=== PATIENT | male | born 1970 | race Caucasian/White ===

== ENCOUNTER → 2019-12-06 11:23 | Outpatient (CLI) | payer OTHER, SELFPAY ==
--- NOTE | 2019-12-06 11:30 | DI.RAD.S_ITS ---
PROCEDURE: XR LUMBAR SPINE 2-3V INDICATIONS: Sacroiliitis, radiculopathy TECHNIQUE: 3 views of the lumbar spine were acquired. COMPARISON: None. FINDINGS: Bones: 5 [id number] vertebrae are present. There is trace L1-L2, L2-L3 and L3-L4 retrolisthesis. Moderate L5-S1 degenerative disc disease. Mild L1-L2, L3-L4 and L4-L5 degenerative disc disease. No vertebral body compression fractures. Small erosive change versus Schmorl's node noted in the anterior superior corner of the L4 vertebral body. Soft tissues: Overlying bowel gas pattern is normal. No suspicious soft tissue calcifications. IMPRESSION: 1. Multilevel degenerate disc disease. 2. No fracture. No acute osseous lesion. If symptoms and/or clinical suspicion for pathology persists, evaluation with MRI may be helpful for further assessment. 3. Erosive change versus small Schmorl's node noted in the anterior-superior corner of the L4 vertebral body. Dictated by: Isabela Thompson MD, PhD on 12/06/2019 at 16:35 Approved by: Isabela Thompson MD, PhD on 12/06/2019 at 16:37
--- NOTE | 2019-12-06 11:30 | DI.RAD.S_ITS ---
PROCEDURE: XR CERVICAL SPINE 2V OR 3V INDICATIONS: Sacroiliitis, radiculopathy TECHNIQUE: 3 view(s) of the cervical spine were acquired. COMPARISON: None. FINDINGS: Bones: No fractures or dislocations to the T1 level. The lateral masses of C1 appear intact on the odontoid view. No suspicious bony lesions. Intervertebral disc height is normally preserved at all levels. No osseous erosive changes. Soft tissues: No prevertebral soft tissue swelling. IMPRESSION: 1. No suspicious osseous lesions with no lytic or sclerotic abnormalities. 2. No fracture. No osseous lesion. If symptoms and/or clinical suspicion for pathology persists, evaluation with MRI may be helpful for further assessment. Dictated by: Isabela Thompson MD, PhD on 12/06/2019 at 16:38 Approved by: Isabela Thompson MD, PhD on 12/06/2019 at 16:40
== END ==
PROVIDERS: PCP Family Medicine; Referring Provider Family Medicine; Visit Provider Family Medicine
DX: M46.1 Sacroiliitis, not elsewhere classified (principal); M51.36 Other intervertebral disc degeneration, lumbar region; M51.37 Other intervertebral disc degeneration, lumbosacral region; M48.02 Spinal stenosis, cervical region; M54.12 Radiculopathy, cervical region; Z15.89 Genetic susceptibility to other disease
CPT/HCPCS: 72040; 72100

== ENCOUNTER → 2020-05-15 10:46 | Outpatient (CLI) | payer OTHER, SELFPAY ==
--- NOTE | 2020-05-15 11:31 | DI.CT.S_ITS ---
PROCEDURE: CT ABDOMEN PELVIS WO/W CON INDICATIONS: Gross hematuria TECHNIQUE: Optional 5 mm thick noncontrast images acquired from the diaphragm to the symphysis pubis. After the administration of intravenous contrast, 5 mm thick images acquired from the diaphragm to the symphysis pubis after a 10-minute delay. 2 mm thick coronal and sagittal reformats were then performed of the kidneys and ureters. For radiation dose reduction, the following was used: automated exposure control, adjustment of mA and/or kV according to patient size. COMPARISON: None. FINDINGS: Image quality: Excellent. Lung bases: Lung bases are clear. Heart size is normal. Urinary system: 5 mm calculus seen in the right renal pelvis although no hydronephrosis or hydroureter identified. No other urolithiasis identified. No evidence of left-sided urinary obstruction. Bladder unremarkable. No bladder calculi. Subcentimeter hepatic foci are statistically cysts or hemangiomas, although technically too small to characterize accurately and therefore nonspecific. Gallbladder unremarkable. Biliary system is non dilated. Pancreas enhances normally. Spleen is normal in size and enhancement. No adrenal nodules. Peritoneum and bowel: Bowel loops demonstrate normal wall thickness and caliber. No free fluid or air. Colonic diverticulosis is seen without evidence of acute complication. Hyperdense appearance of the appendix suggestive of appendicoliths or debris however no inflammatory changes or appendiceal dilatation. Nodes and vessels: No retroperitoneal or mesenteric adenopathy by size criteria. Aorta and inferior vena cava are normal in size. Abdominal wall: No ventral hernias. Pelvis: No pathologic free pelvic fluid. No inguinal hernias or adenopathy. Bones: No suspicious bony lesions. There is bilateral sacroiliac sclerosis, without ankylosis. No vertebral body compression fractures. IMPRESSION: Nonobstructive 5 mm calculus in the right renal pelvis. Incidentally noted hyperdense appearance of the appendix suggestive of intraluminal debris/appendicoliths however no definite inflammatory appearance seen at this time. Additional chronic and incidental findings as above. Dictated by: Jason Farley M.D. on 05/15/2020 at 12:24 Approved by: Jason Farley M.D. on 05/15/2020 at 12:31
== END ==
PROVIDERS: PCP Family Medicine; Referring Provider Family Medicine; Visit Provider Family Medicine
DX: R31.0 Gross hematuria (principal); N20.0 Calculus of kidney; K57.90 Diverticulosis of intestine, part unspecified, without perforation or abscess without bleeding
CPT/HCPCS: 74178; Q9967

== ENCOUNTER → 2020-07-02 11:35 | Outpatient (CLI) | payer OTHER, SELFPAY ==
--- NOTE | 2020-07-02 11:38 | DI.RAD.S_ITS ---
PROCEDURE: XR KUB INDICATIONS: Kidney stones TECHNIQUE: One view of the abdomen acquired. COMPARISON: [facility], CT, CT ABDOMEN PELVIS WO/W CON, 05/15/2020, 11:36. FINDINGS: Surgical changes and devices: None. Bowel: Bowel gas pattern is normal. Soft tissues: A 5 mm calcification is seen projecting over the inferior pole of the right kidney. No definite calcification is seen along the course of the ureters. Visualized solid organ contours appear normal in size. Bones: No suspicious bony lesions. There is joint space narrowing and surrounding sclerosis at the sacroiliac joints bilaterally without ankylosis. IMPRESSION: 5 mm calcification is seen projecting over the right kidney. Dictated by: Bradford Riley M.D. on 07/02/2020 at 12:49 Approved by: Bradford Riley M.D. on 07/02/2020 at 12:52
== END ==
PROVIDERS: PCP Family Medicine; Referring Provider Specialist; Visit Provider Specialist
DX: N20.0 Calculus of kidney (principal); R31.0 Gross hematuria
CPT/HCPCS: 74018; 81002

== ENCOUNTER 2020-08-30 07:49 | Day surgery (SDC) | payer OTHER, SELFPAY ==
[2020-08-30] VITALS (12 sets, daily range): BP systolic 95–125; BP diastolic 57–79; PULSE 57–80; RESP 10–16; TEMP 36.4–37; O2SAT 95–98; BMI 27.5
--- NOTE | 2020-08-30 | DI.RAD.S_ITS ---
PROCEDURE: XR KUB INDICATIONS: Right renal calculus TECHNIQUE: One view of the abdomen acquired. COMPARISON: [facility], CR, XR KUB, 07/02/2020, 11:39. FINDINGS: Surgical changes and devices: None. Bowel: Bowel gas pattern is normal. Soft tissues: No new suspicious abdominal calcifications. One or overlapping 2 calcifications are again seen at the lower 3rd collecting system area of the right kidney, unchanged in morphology size and position. Visualized solid organ contours appear normal in size. A small phlebolith is seen inferiorly on the right near the lateral pelvic sidewall. Bones: No suspicious bony lesions. IMPRESSION: Urinary tract calcification(s) again noted lower 3rd collecting system area of the right kidney. No change. Dictated by: Herbie Vasquez M.D. on 08/30/2020 at 9:13 Approved by: Herbie Vasquez M.D. on 08/30/2020 at 9:16
[2020-08-30 08:24] LABS: COVID19 -Nasal RAPID Negative (Negative)
[2020-08-30] MEDS: LACTATED RINGERS 1,000 ML 42 ML IV (08:29)
[2020-08-30] MEDS: SCOPOLAMINE 1 PATCH TOP (08:29)
[2020-08-30] MEDS: ACETAMINOPHEN 325 MG TABLET 975 MG PO (08:29)
--- NOTE | 2020-08-30 08:40 | PM.PREOP ---
Pre-operative Note Interval Note History & Physical reviewed/Exam performed by Physician: Yes Changes to H&P: No
--- NOTE | 2020-08-30 09:10 | SUR.OPER ---
Supine on padded OR bed, head on pillow per anes, arms padded with gel and tucked at side, legs uncrossed, on lithotripsy bed, legs positioned on triangle, gel pad under bilateral legs and heels
--- NOTE | 2020-08-30 09:33 | P.OP_ITS ---
Operative Date/Time/Diagnoses Date of procedure: 08/30/20 Time of procedure: 09:33 Pre-op diagnosis: 6 x 8 mm right renal calculi History of nephrolithiasis Post-op diagnosis: same Procedure & Clinicians Procedure: Right extra corporal shockwave lithotripsy (maximal power level 6.0 time 750 shocks). Same procedure as scheduled: Yes Indications: 6 x 8 mm right renal calculus History of nephrolithiasis Surgeon: Andi Jimenes Click Yes if Unassisted: Yes Anesthesia Type: General Operative Notes Findings: The index calculus was identified in the same position as on preoperative imaging. Closure Type: not applicable Specimen(s): none sent Estimated Blood Loss (mL): 0 Blood products transfused: none Procedure in detail: Patient was positioned supine in the index calculus was localized in the X, Y, and Z planes. Lithotripsy was then commenced at minimal power level for 200 shocks. A 2 minutes pause was then conducted. Lithotripsy was then resumed and power level was gradually increased to a maximal power level of 6.0. The stone and its fragments were really localize during treatment and adjustments were made in the position of the focal point is indicated. A total of 750 shocks were delivered. There was excellent evidence of stone c omminution at that point and treatment was halted. Patient was then awakened, transferred to [facility], and transferred to recovery in stable condition. Complications: none Post-operative Condition: stable Disposition: PACU Plan for aftercare: Discharge home
--- NOTE | 2020-08-30 10:05 | SUR.PHASEI ---
0950 pt. turned to his left side per dr. le, ongoing monitoring.
== END 2020-08-30 10:42 | disposition home or self-care (01) ==
PROVIDERS: PCP Family Medicine; Referring Provider Specialist; Visit Provider Specialist
PROC: (CPT 50590; principal; 2020-08-30 09:15)
DX: N20.0 Calculus of kidney (principal); F41.9 Anxiety disorder, unspecified; Z20.822 Contact with and (suspected) exposure to COVID-19
CPT/HCPCS: 50590; 74018; 87635; J1100; J2250; J2405; J2704

== ENCOUNTER → 2022-05-26 08:01 | Outpatient (CLI) | payer OTHER, SELFPAY ==
[2022-05-26 20:58] LABS: COVID19 - ORCAS (NP or Nasal) Negative (Negative)
== END ==
PROVIDERS: PCP Physician Assistant; Visit Provider Physician Assistant
DX: Z01.812 Encounter for preprocedural laboratory examination (principal); Z20.822 Contact with and (suspected) exposure to COVID-19
CPT/HCPCS: U0003

== ENCOUNTER 2022-05-28 08:54 | Day surgery (SDC) | payer OTHER, SELFPAY ==
[2022-05-28] MEDS: LACTATED RINGERS 1,000 ML 84 ML IV (09:12)
[2022-05-28 09:14] VITALS: BP 157/92; PULSE 74; RESP 18; TEMP 36.8; O2SAT 99; BMI 27.5
--- NOTE | 2022-05-28 11:01 | PM.PREOP ---
Pre-operative Note COVID-19 COVID-19 status: Negative Result date/Date tested (Pos, Neg/Pending): 05/27/22 Interval Note History & Physical reviewed/Exam performed by Physician: Yes Changes to H&P: No ASA Class (for procedural sedation): I
[2022-05-28 12:13] VITALS: BP 95/59; PULSE 88; RESP 16; TEMP 36.1; O2SAT 97
--- NOTE | 2022-05-28 12:13 | PM.OP.COLON ---
Operative Date/Time/Diagnoses Date of procedure: 05/28/22 Time of procedure: 12:13 Pre-op diagnosis: Colon cancer screening Post-op diagnosis: same Procedure & Clinicians Study performed: Colonoscopy Same procedure as scheduled: Yes Surgeon: Aaron Madrigal Procedure Notes Procedure in detail: Surgeon: Aaron Madrigal MD Anesthesia: Melo Magaña MD Procedure: The patient was brought to the endoscopy suite, placed in left lateral decubitus position. The patient was connected to monitoring devices. A time-out was performed. Sedation was administered. Once the patient was adequately sedated, a digital rectal exam was performed and was normal. The scope was then inserted and advanced to the cecum where the appendiceal orifice was identified and photographed. The scope was then slowly withdrawn over greater than 6 minutes. The mucosa was thoroughly inspected. No polyps or other lesions were noted. The scope was retroflexed in the rectum. No other abnormalities were noted. The scope was straightened and removed. The patient was awakened and brought to recovery. Scope withdrawal time: 11 minutes Sedation time: 13 minutes EBL: 5 mL Findings: Normal colon Post-procedure Recommendations: Colonoscopy in 10 years Disposition: PACU
[2022-05-28 12:18] VITALS: BP 94/54; PULSE 77; RESP 12; O2SAT 94
[2022-05-28 12:23] VITALS: BP 98/63; PULSE 79; RESP 18; O2SAT 94
[2022-05-28 12:28] VITALS: BP 96/57; PULSE 77; RESP 16; TEMP 36.6; O2SAT 94
[2022-05-28 12:38] VITALS: BP 108/74; PULSE 65; RESP 16; TEMP 36.2; O2SAT 96
== END 2022-05-28 12:59 | disposition home or self-care (01) ==
PROVIDERS: PCP Physician Assistant; Referring Provider Surgery; Visit Provider Surgery
PROC: 0DJD8ZZ Inspection of Lower Intestinal Tract, Via Natural or Artificial Opening Endoscopic (ICD-10-PCS; CPT 45378; principal; 2022-05-28 10:00)
DX: Z12.11 Encounter for screening for malignant neoplasm of colon (principal)
CPT/HCPCS: 45378

== ENCOUNTER → 2022-06-01 06:58 | Outpatient (CLI) | payer OTHER, SELFPAY ==
[2022-06-01 21:28] LABS: COVID19 - ORCAS (NP or Nasal) Negative (Negative)
== END ==
PROVIDERS: PCP Physician Assistant; Visit Provider Family Medicine
DX: Z01.812 Encounter for preprocedural laboratory examination (principal); Z20.822 Contact with and (suspected) exposure to COVID-19
CPT/HCPCS: U0003

== ENCOUNTER 2022-06-02 11:15 | Day surgery (SDC) | payer OTHER, SELFPAY ==
[2022-05-28 07:51] VITALS: BMI 28.8
[2022-06-02 12:10] VITALS: BP 135/90; PULSE 59; RESP 16; TEMP 36.3; O2SAT 98; BMI 28.8
[2022-06-02] MEDS: LACTATED RINGERS 1,000 ML 42 ML IV (12:13)
--- NOTE | 2022-06-02 14:00 | PM.PREOP ---
Pre-operative Note COVID-19 COVID-19 status: Negative Result date/Date tested (Pos, Neg/Pending): 06/01/22 Interval Note History & Physical reviewed/Exam performed by Physician: Yes Changes to H&P: No ASA Class (for procedural sedation): II
--- NOTE | 2022-06-02 14:41 | SUR.OPER ---
Lithotomy on padded OR bed, head on pillow, right arm secured on padded arm boards at <90 degrees abduction, left arm positioned so hand is holding scrotum out of surgical field with blanket under forearm Legs secured in padded yellow fins stirrups.
[2022-06-02] MEDS: BUPIVACAINE LIPOSOME 266 MG/20 ML VIAL INJ (14:49)
[2022-06-02 15:34] VITALS: BP 116/74; PULSE 84; RESP 16; TEMP 36.6; O2SAT 92
[2022-06-02 15:39] VITALS: BP 118/72; PULSE 87; RESP 13; O2SAT 93
--- NOTE | 2022-06-02 15:39 | PM.OP.1 ---
Operative Date/Time/Diagnoses Date of procedure: 06/02/22 Time of procedure: 15:41 Pre-op diagnosis: Fistula Post-op diagnosis: same Procedure & Clinicians Procedure: Examination under anesthesia and seton placement Same procedure as scheduled: Yes Surgeon: Aaron Madrigal Operative Notes Procedure in detail: The patient was brought to the operating room and general anesthesia was induced. No antibiotics were indicated. The patient was positioned in lithotomy with stirrups. Perineum was prepped and draped in the usual fashion and a time-out was performed. The anal sphincter was dilated using 2 fingers with plenty of lubricant. Inspection demonstrated the external opening in the posterior midline 2 cm from the anal verge. Next a Hill-Roman retractor was inserted and the distal rectum was examined. Initially, no obvious internal opening was seen. We injected hydrogen peroxide which demonstrated the internal opening in the midline. Probe was passed through the tract to the internal opening. It appeared that all of the internal sphincter and possibly some of the external sphincter was involved and so a decision was made to place a seton. A silk suture was tied to the probe and pulled through the tract. Then a vessel loop was tied to the silk and pulled through the tract. The vessel loop was tied to itself using 2 0 silk ties. Finally we injected Exparel around the wound and placed a Gelfoam against the wound bed. Gauze and mesh panties were applied. The patient was awakened and brought to recovery room. EBL: 10 mL Specimen: None Post-operative Condition: stable Disposition: PACU
[2022-06-02 15:44] VITALS: BP 116/81; PULSE 90; RESP 15; O2SAT 97
[2022-06-02 15:49] VITALS: BP 124/83; PULSE 85; RESP 14; O2SAT 95
[2022-06-02 15:58] VITALS: BP 127/84; PULSE 84; RESP 15; TEMP 36.6; O2SAT 99
== END 2022-06-02 16:23 | disposition home or self-care (01) ==
PROVIDERS: PCP Physician Assistant; Referring Provider Surgery; Visit Provider Surgery
PROC: (CPT 46020; principal; 2022-06-02 13:15)
DX: K60.3 Anal fistula (principal)
CPT/HCPCS: 46020; C9290; J1100; J2250; J2405; J2704; J3010

== ENCOUNTER → 2022-08-31 08:51 | Outpatient (CLI) | payer OTHER, SELFPAY ==
[2022-08-31 19:48] LABS: Add Manual Diff / Slide Review NO; Basophils Absolute Auto 0 /uL (0-100); Basophils Percent Auto 0.7 % (0-2); Eosinophils Absolute Auto 500 /uL (0-450); Eosinophils Percent Auto 11.3 % (2-4); Hematocrit 43.9 % (41-53); Hemoglobin 14.7 g/dL (13.5-17.5); Lymphocytes Absolute Auto 1500 /uL (1100-4500); Lymphocytes Percent Auto 35.5 % (25-40); Mean Corpuscular HGB Conc 33.5 % (30-36); Mean Corpuscular Volume 92.4 fL (80-100); Monocytes Absolute Auto 300 /uL (0-900); Monocytes Percent Auto 6.7 % (3-14); Neutrophils Absolute Auto 2000 /uL (1500-7000); Neutrophils Percent Auto 45.8 % (50-75); Platelet Count 303 X10^3/uL (150-400); Red Blood Cell Count 4.75 X10^6/uL (4.5-5.9); Red Cell Distribution Width 13.1 % (11.6-14.8); White Blood Cell Count 4.3 X10^3/uL (4.5-11.0)
[2022-08-31 20:03] LABS: Alanine Aminotransferase 26 IU/L (<50); Albumin 4.4 g/dL (3.5-5.0); Albumin Globulin Ratio 1.5 (1.0-2.8); Alkaline Phosphatase 66 U/L (38-126); Aspartate Aminotransferase 26 IU/L (17-59); BUN Creatinine Ratio 21.1 (6-22); Blood Urea Nitrogen 16 mg/dL (9-20); Calcium 9.5 mg/dL (8.4-10.2); Carbon Dioxide 26 mmol/L (22-32); Chloride 105 mmol/L (98-107); Cholesterol 230 mg/dL (140-199); Estimated Glomerular Filt Rate > 60 mL/min (>60); Globulin 2.9 g/dL (1.7-4.1); Glucose 105 mg/dL (70-100); HDL Cholesterol 54 mg/dL (40-60); HEMOLYSIS < 15 (0-50); LDL Cholesterol Calculated 143 mg/dL (<100); Potassium 4.7 mmol/L (3.4-5.1); Sodium 139 mmol/L (137-145); Total Protein 7.3 g/dL (6.3-8.2); Triglycerides 166 mg/dL (35-150)
== END ==
PROVIDERS: PCP Family Medicine; Visit Provider Family Medicine
DX: E78.5 Hyperlipidemia, unspecified (principal); Z79.1 Long term (current) use of non-steroidal anti-inflammatories (NSAID); R19.5 Other fecal abnormalities; R10.13 Epigastric pain
CPT/HCPCS: 80053; 80061; 84443; 85025

== ENCOUNTER → 2022-09-28 14:03 | Outpatient (CLI) | payer OTHER, SELFPAY ==
[2022-09-28 20:17] LABS: Add Manual Diff / Slide Review NO; Basophils Absolute Auto 0 /uL (0-100); Basophils Percent Auto 0.6 % (0-2); Eosinophils Absolute Auto 200 /uL (0-450); Eosinophils Percent Auto 3.1 % (2-4); Hematocrit 41.3 % (41-53); Hemoglobin 14.1 g/dL (13.5-17.5); Lymphocytes Absolute Auto 1800 /uL (1100-4500); Lymphocytes Percent Auto 33.5 % (25-40); Mean Corpuscular HGB Conc 34.2 % (30-36); Mean Corpuscular Hemoglobin 31.4 PG (26-34); Mean Corpuscular Volume 91.9 fL (80-100); Monocytes Absolute Auto 400 /uL (0-900); Monocytes Percent Auto 7.6 % (3-14); Neutrophils Absolute Auto 2900 /uL (1500-7000); Neutrophils Percent Auto 55.2 % (50-75); Platelet Count 294 X10^3/uL (150-400); Red Blood Cell Count 4.49 X10^6/uL (4.5-5.9); White Blood Cell Count 5.3 X10^3/uL (4.5-11.0)
[2022-09-29 21:07] LABS: x Labcorp Estim. Avg Glu (eAG) 111 mg/dL (.); x Labcorp Hemoglobin A1c 5.5 % (4.8-5.6)
== END ==
PROVIDERS: PCP Family Medicine; Visit Provider Family Medicine
DX: D72.10 Eosinophilia, unspecified (principal)
CPT/HCPCS: 83036; 85025

== ENCOUNTER 2022-11-30 22:18 | Emergency (ER) | payer OTHER, SELFPAY ==
[2022-11-30 22:25] VITALS: BP 130/85; PULSE 130; RESP 18; TEMP 36.6; O2SAT 97
--- NOTE | 2022-11-30 22:30 | DI.RAD.S_ITS ---
PROCEDURE: XR FINGER RT MIN 2V INDICATIONS: smashed middle finger between 2 rocks,has lac TECHNIQUE: AP hand, 2 views of the 3rd digit acquired. COMPARISON: None. FINDINGS: Bones: No fractures or dislocations. No suspicious bony lesions. Soft tissues: There is a soft tissue laceration of the 3rd digit distally. No radiopaque foreign bodies. No suspicious soft tissue calcifications. IMPRESSION: 1. No fracture or dislocation. Dictated by: Candido Quach M.D. on 12/01/2022 at 1:23 Approved by: Candido Quach M.D. on 12/01/2022 at 1:25
[2022-11-30] MEDS: LIDOCAINE 1% 20 ML INJ (23:00)
--- NOTE | 2022-11-30 23:15 | ED_ITS ---
HPI - General Adult General Chief complaint: Extremity Injury, Upper Stated complaint: RT MIDDLE FINGER INJURY Time Seen by Provider: 11/30/22 22:38 Source: patient Mode of arrival: Ambulatory History of Present Illness HPI narrative: Patient is a 51-year-old male who is here for evaluation of a right middle finger injury. He states that he was working on a stone wall when he smashed his right middle finger in between 2 stones. There is an obvious laceration to the finger. He is pain in the middle finger. No other injuries from the event. He is up-to-date on his tetanus shot. Related Data Home Medications Medication Instructions Recorded Confirmed cholecalciferol (vitamin D3) 25 25 mcg PO DAILY 08/30/20 11/16/22 mcg (1,000 unit) capsule (Vitamin D3) naproxen 250 mg tablet 250 mg PO ONCE PRN Pain 10/28/20 11/16/22 Previous Rx's Medication Instructions Recorded sertraline 50 mg tablet See Rx Instructions .Route 12/30/21 .COMPLEX #180 tabs cephalexin 500 mg capsule 500 mg PO QID 5 days #20 caps 12/01/22 Allergies Allergy/AdvReac Type Severity Reaction Status Date / Time No Known Drug Allergies Allergy Verified 11/16/22 13:19 Review of Systems Musculoskeletal Musculoskeletal: Reports system reviewed and no additional complaints, except as documented Integumentary/Breasts Skin/Breast: Reports system reviewed and no additional complaints, except as documented Neurologic Neurologic: Reports system reviewed and no additional complaints, except as documented Patient History Medical History Arthritis Atrial flutter DDD (degenerative disc disease) Encounter for monitoring chronic NSAID therapy Gross hematuria H/O atrial flutter H/O rotator cuff tear Right nephrolithiasis Screening for cardiovascular condition Screening for diabetes mellitus Screening for thyroid disorder Surgical History History of cardiac radiofrequency ablation (2004) History of urologic surgery (08/30/20) Family History Mother Cancer UTI (urinary tract infection) Father Cancer IBD (inflammatory bowel disease) Migraine Social History marital status: household members: spouse Smoking Status: Never smoker alcohol intake: current caffeine: Yes Smoking Status: Never smoker alcohol intake frequency: 0-2 drinks per day Substance Use Type: marijuana Exam Initial Vital Signs Initial Vital Signs: Vital Signs Temperature 97.8 F 11/30/22 22:25 Pulse Rate 130 H 11/30/22 22:25 Respiratory Rate 18 11/30/22 22:25 Blood Pressure 130/85 11/30/22 22:25 Pulse Oximetry 97 11/30/22 22:25 Oxygen Delivery Method Room Air 11/30/22 22:25 Cardio Pulses: radial pulses present on the right Skin Other: Patient has a irregular laceration to the volar aspect of the distal right middle finger. It involves the pad of the finger. It does not extend proximal to the D IP joint. It extends to just the edge of the nail but does not involve the nail bed. Neuro Sensory Exam: no sensory deficits noted Extrem Other: Discomfort with palpation and movement of the distal right middle finger distal to the D IP joint. Procedures Laceration Repair Laceration 1: Site: other (Middle finger) Side (If applicable): right Size (cm): 3 Description: stellate, flap and irregular Depth: simple, single layer Local Anesthetic: lidocaine 1% Amount of anesthesia used (mL): 10 Pre-repair: wound explored and deep structures intact Skin layer closed with: nylon Skin layer suture size: 4-0 Number of sutures: 15 Technique: simple, interrupted Nerve Block Nerve Block 1: Local Anesthetic: lidocaine 1% Amount of anesthesia used (mL): 10 Side: right Nerve Blocks: digital Procedure Successful: Yes Patient Tolerated Procedure: Well Complications: none Course Orders Ordered: ED Orders 11/30/22 22:30 XR finger RT min 2V Stat Discontinued Medications Hydrocodone Bitart/Acetaminophen (Hydrocodone/Acet 5/325 Prepack) 1 bottle MISC SEEINSTR ONE Stop: 12/01/22 00:38 Last Admin: 12/01/22 00:40 Dose: 1 bottle Documented By: [email or web address] Bacitracin (Bacitracin Oint 0.9 Gm Pckt) 1 applic TOP NOW ONE Stop: 12/01/22 00:22 Last Admin: 12/01/22 00:25 Dose: 1 applic Documented By: [email or web address] Cephalexin HCl (Cephalexin 250 Mg Capsule) 500 mg PO NOW ONE Stop: 12/01/22 00:22 Last Admin: 12/01/22 00:25 Dose: 500 mg Documented By: [email or web address] Lidocaine HCl (Lidocaine 1% 20 Ml) 20 ml INJ INTRA-OP ONE Stop: 11/30/22 22:40 Last Admin: 11/30/22 23:00 Dose: 20 ml Documented By: CARMEN Vital Signs Vital signs: Vital Signs - 8 hr 11/30/22 22:25 12/01/22 00:48 Temperature 97.8 F Pulse Rate 130 H 84 Respiratory Rate 18 18 Blood Pressure 130/85 138/88 Pulse Oximetry 97 98 Oxygen Delivery Method Room Air Room Air Medical Decision Making Imaging Data Extremity x-ray #1: Radiologist's Impression: PROCEDURE:? XR FINGER RT MIN 2V ? INDICATIONS:? smashed middle finger between 2 rocks,has lac ? TECHNIQUE:? AP hand, 2 views of the 3rd digit acquired.? ? COMPARISON:? None. ? FINDINGS:? ? Bones:? No fractures or dislocations.? No suspicious bony lesions.? ? Soft tissues:? There is a soft tissue laceration of the 3rd digit distally.? No radiopaque foreign bodies.? No suspicious soft tissue calcifications.? ? IMPRESSION:? ? 1.? No fracture or dislocation. MDM Narrative Medical decision making narrative: Patient is up-to-date on his tetanus. No fractures or dislocations on the x- rays. Injury is isolated to the very distal aspect of the right middle finger. It was a very irregular laceration with couple different parts. Required 15 stitches total. There was a small flap of skin that potentially will not survive this injury. I did discuss this with him. Told him that even if the flap of skin does not survive stitching it back will provide a biologic bandage for the skin underneath. I did have to click back a small amount of the nail. There was no nail bed injury. Will start the patient on antibiotics. We will also send home with pain medication. He was given care instructions and return precautions. He expressed understanding and agreement. Discharge Plan Departure Patient Disposition: Home Clinical Impression: Crushing injury of finger, right Instructions: Skin Wound Activity Restrictions/Additional Instructions: Leave the bandage was placed today in place for the next 24 hours. After that you can remove it. You can wash your hands. You can shower. You can use soap and water. Do not soak your hand until the wound is healed. The stitches do need to be removed in 7-10 days. You can could your primary doctor for this. You can put topical antibiotic ointment over the area. Return to the emergency department for new or worsening symptoms. Prescriptions: New cephalexin 500 mg capsule 500 mg PO QID 5 Days Qty: 20 0RF No Action sertraline 50 mg tablet See Rx Instructions .ROUTE .COMPLEX Qty: 180 3RF Dose Instruction: TAKE 2 TABLETS DAILY Rx Instructions: TAKE 2 TABLETS DAILY cholecalciferol (vitamin D3) [Vitamin D3] 25 mcg (1,000 unit) Capsule 25 mcg PO DAILY naproxen 250 mg tablet 250 mg PO ONCE PRN (Reason: Pain) Referrals: Nichole Thomas MD [Primary Care Provider] - Stand Alone Forms: Patient Portal/API
[2022-12-01] MEDS: BACITRACIN OINT 0.9 GM PCKT 1 APPLIC TOP (00:25)
[2022-12-01] MEDS: cephALEXin 250 MG CAPSULE 500 MG PO (00:25)
[2022-12-01] MEDS: HYDROCODONE/ACET 5/325 PREPACK 1 BOTTLE MISC (00:40)
[2022-12-01 00:48] VITALS: BP 138/88; PULSE 84; RESP 18; O2SAT 98
== END 2022-12-01 00:49 | disposition home or self-care (01) ==
PROVIDERS: Emergency Provider Emergency Medicine; PCP Family Medicine
DX: S67.192A Crushing injury of right middle finger, initial encounter (principal); W23.0XXA Caught, crushed, jammed, or pinched between moving objects, initial encounter
CPT/HCPCS: 12002; 64450; 73140; 99283; 99284

== ENCOUNTER → 2022-12-17 16:02 | Outpatient (CLI) | payer OTHER, SELFPAY | PROVIDERS: PCP Family Medicine; Visit Provider Family Medicine | DX: L08.9 Local infection of the skin and subcutaneous tissue, unspecified (principal); T14.8XXA Other injury of unspecified body region, initial encounter | CPT/HCPCS: 87070; 87075; 87205 ==

== ENCOUNTER → 2024-04-05 10:53 | Outpatient (CLI) | payer OTHER, SELFPAY ==
[2024-04-05 19:07] LABS: Add Manual Diff / Slide Review NO; Basophils Absolute Auto 100 /uL (0-100); Basophils Percent Auto 1.2 % (0-2); Eosinophils Absolute Auto 200 /uL (0-450); Eosinophils Percent Auto 4.7 % (2-4); Hematocrit 44.4 % (41-53); Hemoglobin 14.9 g/dL (13.5-17.5); Lymphocytes Absolute Auto 2000 /uL (1100-4500); Lymphocytes Percent Auto 42.2 % (25-40); Mean Corpuscular HGB Conc 33.6 % (30-36); Mean Corpuscular Hemoglobin 31.2 PG (26-34); Mean Corpuscular Volume 92.8 fL (80-100); Monocytes Absolute Auto 300 /uL (0-900); Monocytes Percent Auto 7.2 % (3-14); Neutrophils Absolute Auto 2100 /uL (1500-7000); Neutrophils Percent Auto 44.7 % (50-75); Platelet Count 328 X10^3/uL (150-400); Red Blood Cell Count 4.79 X10^6/uL (4.5-5.9); Red Cell Distribution Width 12.9 % (11.6-14.8); White Blood Cell Count 4.8 X10^3/uL (4.5-11.0)
[2024-04-05 19:21] LABS: Alanine Aminotransferase 27 IU/L (<50); Albumin 4.6 g/dL (3.5-5.0); Albumin Globulin Ratio 1.6 (1.0-2.8); Alkaline Phosphatase 71 U/L (38-126); Aspartate Aminotransferase 28 IU/L (17-59); BUN Creatinine Ratio 19.8 (6-22); Bilirubin Total 1.2 mg/dL (0.2-1.3); Blood Urea Nitrogen 18 mg/dL (9-20); Calcium 10.1 mg/dL (8.4-10.2); Carbon Dioxide 25 mmol/L (22-32); Chloride 102 mmol/L (98-107); Cholesterol 270 mg/dL (140-199); Estimated Glomerular Filt Rate > 60 mL/min (>60); Globulin 2.9 g/dL (1.7-4.1); Glucose 100 mg/dL (70-100); HDL Cholesterol 53 mg/dL (40-60); HEMOLYSIS < 15 (0-50); LDL Cholesterol Calculated 180 mg/dL (<100); Potassium 5.1 mmol/L (3.4-5.1); Sodium 137 mmol/L (137-145); Total Protein 7.5 g/dL (6.3-8.2); Triglycerides 186 mg/dL (35-150)
[2024-04-05 19:49] LABS: Thyroid Stimulating Hormone 1.26 uIU/mL (0.47-4.68)
[2024-04-05 19:50] LABS: Prostate Specific Antigen Scrn 1.59 ng/mL (0.1-4.0)
== END ==
PROVIDERS: PCP Family Medicine; Visit Provider Family Medicine
DX: Z12.5 Encounter for screening for malignant neoplasm of prostate (principal); I10 Essential (primary) hypertension; R73.09 Other abnormal glucose; E78.5 Hyperlipidemia, unspecified; F41.9 Anxiety disorder, unspecified
CPT/HCPCS: 80053; 80061; 84443; 85025; G0103